=== PATIENT | female | born 1970 | race Caucasian/White ===

== ENCOUNTER → 2019-07-15 10:05 | Outpatient (REF) | payer OTHER, SELFPAY | LOC: ANHLAB 10:05 | PROVIDERS: Visit Provider Nurse Practitioner | DX: C44.519 Basal cell carcinoma of skin of other part of trunk (principal) | CPT/HCPCS: 88305 ==

== ENCOUNTER → 2019-08-11 07:24 | Outpatient (REF) | payer OTHER, SELFPAY | LOC: ANHLAB 07:24 | PROVIDERS: Visit Provider Nurse Practitioner | DX: C44.519 Basal cell carcinoma of skin of other part of trunk (principal) | CPT/HCPCS: 88305; 88331 ==

== ENCOUNTER → 2020-08-16 12:57 | Outpatient (REF) | payer OTHER, SELFPAY | LOC: ANHLAB 12:57 | PROVIDERS: PCP Pediatrics; Visit Provider Nurse Practitioner | DX: D49.2 Neoplasm of unspecified behavior of bone, soft tissue, and skin (principal) | CPT/HCPCS: 88305 ==

== ENCOUNTER 2022-08-03 09:00 | Outpatient (NON) | payer OTHER, SELFPAY | END 2022-08-03 09:01 | disposition home or self-care (01) | LOC: ANHLAB 08-04 13:00 | PROVIDERS: PCP Pediatrics; Visit Provider Nurse Practitioner | DX: L82.1 Other seborrheic keratosis (principal) | CPT/HCPCS: 88305 ==